=== PATIENT | male | born 2000 | race Two or more races ===

== ENCOUNTER 2022-10-13 17:42 | Emergency (ER) | payer OTHER ==
[~2022-10-13] VITALS: Ht 182.9 cm; Wt 83.9 kg
[2022-10-13] MEDS ORDERED: AMOXICILLIN-CLAVUL 875-125MG TABLET PO ONE (20:00)
[2022-10-13] MEDS ORDERED: TDAP DIPH,PERTUSS,TET VAC/PF 0.5 ML DISP.SYRIN IM ONE ×2 (20:00→21:02)
[2022-10-13] MEDS ORDERED: AMOX-430 PO (20:03)
[2022-10-13] MEDS ORDERED: AMOXICILLIN-CLAVUL 875-125MG TABLET ONE (21:01)
--- NOTE | 2022-10-13 21:13 | NUR ---
Patient sitting at bedside, informed of plan of care, wound care done and has been medicated as per order.
[2022-10-13 22:18] VITALS: BP 133/88
== END 2022-10-13 21:30 | disposition home or self-care (01) ==
LOC: ER 17:42
DX: S61.452A Open bite of left hand, initial encounter (principal); S81.852A Open bite, left lower leg, initial encounter; W54.0XXA Bitten by dog, initial encounter; Y92.89 Other specified places as the place of occurrence of the external cause
CPT/HCPCS: 90715; A4663